=== PATIENT | male | born 1960 | race American Indian/Alaskan Native ===

== ENCOUNTER 2021-05-29 15:11 | Emergency (ER) | payer OTHER ==
--- NOTE | 2021-05-29 18:04 | XRay Report ---
CHEST PA AND LATERAL VIEWS INDICATION: cough. COMPARISON: 04/16/2021 FINDINGS: Support devices: None. Heart: Within normal limits. Lungs/Pleura: Extensive scarring and emphysematous changes again noted. Pleural thickening and pleura l calcifications greatest at the apices are again noted. No superimposed acute pulmonary or pleural f indings. IMPRESSION: 1. No superimposed acute pulmonary or pleural findings. Signer Name: Jamarcus Gong MD Signed: 05/29/2021 6:00 PM Workstation Name: [id number]
--- NOTE | 2021-05-29 18:08 | Emergency Department Report ---
- General Chief Complaint: Upper Respiratory Infection Stated Complaint: COVID Symptoms Time Seen by Provider: 05/29/21 17:15 Source: patient Mode of arrival: Ambulatory Limitations: No Limitations - History of Present Illness Initial Comments: Patient is a 61-year-old male presents emergency room complaints of URI symptoms that began 3 days ago. He reports he is feeling better today. He states he went to get swab for COVID-19 but is awaiting his results. He states he has been fully vaccinated for COVID-19. He has associated cough, headache, fatigue, diarrhea. He denies any shortness of breath, chest pain, vomiting, fever, sore throat, ear pain. He has a past medical history of COPD and CHF. No allergies to medications. - Related Data Previous Rx's Medication Instructions Recorded Last Taken Type Metoprolol [Lopressor TAB] 12.5 mg PO BID #60 tablet 04/18/21 Unknown Rx methylPREDNISolone [Medrol 4MG 4 mg PO DAILY #1 tab.ds.pk 04/18/21 Unknown Rx DOSEPAK (21 tabs)] Arformoterol Nebu [Brovana Nebu] 15 mcg IH Q12HRT 30 Days ml 04/19/21 Unknown Rx Budesonide [Pulmicort Respules] 0.25 mg IH Q12HRT 30 Days nebu 04/19/21 Unknown Rx Furosemide [Lasix TAB] 20 mg PO QDAY #30 tablet 04/19/21 Unknown Rx Nebulizer [Aeroneb Go Nebulizer] 1 each MC BID 30 Days each 04/19/21 Unknown Rx lisinopriL [Zestril TAB] 10 mg PO QDAY #30 tablet 04/19/21 Unknown Rx Benzonatate [Tessalon Perles] 100 mg PO Q8HR PRN #12 capsule 05/29/21 Unknown Rx Fluticasone [Flonase] 1 spray NS QDAY #1 bottle 05/29/21 Unknown Rx guaiFENesin ER [Mucinex ER] 600 mg PO Q12H #14 tablet.er 05/29/21 Unknown Rx Allergies Allergy/AdvReac Type Severity Reaction Status Date / Time No Known Allergies Allergy Verified 04/19/21 08:01 ED Review of Systems ROS: Stated complaint: COVID Symptoms Other details as noted in HPI Comment: All other systems reviewed and negative ED Past Medical Hx - Past Medical History Previous Medical History?: Yes Hx COPD: Yes Additional medical history: emphysema - Surgical History Past Surgical History?: Yes Additional Surgical History: lung surgery - Social History Smoking Status: Unknown if ever smoked - Medications Home Medications: Home Medications Medication Instructions Recorded Confirmed Last Taken Type Metoprolol [Lopressor TAB] 12.5 mg PO BID #60 tablet 04/18/21 Unknown Rx methylPREDNISolone [Medrol 4MG 4 mg PO DAILY #1 tab.ds.pk 04/18/21 Unknown Rx DOSEPAK (21 tabs)] Arformoterol Nebu [Brovana Nebu] 15 mcg IH Q12HRT 30 Days ml 04/19/21 Unknown Rx Budesonide [Pulmicort Respules] 0.25 mg IH Q12HRT 30 Days nebu 04/19/21 Unknown Rx Furosemide [Lasix TAB] 20 mg PO QDAY #30 tablet 04/19/21 Unknown Rx Nebulizer [Aeroneb Go Nebulizer] 1 each MC BID 30 Days each 04/19/21 Unknown Rx lisinopriL [Zestril TAB] 10 mg PO QDAY #30 tablet 04/19/21 Unknown Rx Benzonatate [Tessalon Perles] 100 mg PO Q8HR PRN #12 capsule 05/29/21 Unknown Rx Fluticasone [Flonase] 1 spray NS QDAY #1 bottle 05/29/21 Unknown Rx guaiFENesin ER [Mucinex ER] 600 mg PO Q12H #14 tablet.er 05/29/21 Unknown Rx ED Physical Exam - General Limitations: No Limitations General appearance: alert, in no apparent distress - Head Head exam: Present: atraumatic, normocephalic - Eye Eye exam: Present: normal appearance - ENT ENT exam: Present: mucous membranes moist - Respiratory Respiratory exam: Present: normal lung sounds bilaterally. Absent: respiratory distress, wheezes, rales, rhonchi, stridor, chest wall tenderness, accessory muscle use, decreased breath sounds, prolonged expiratory - Cardiovascular Cardiovascular Exam: Present: regular rate, normal rhythm, normal heart sounds. Absent: systolic murmur, diastolic murmur, rubs, gallop - Neurological Exam Neurological exam: Present: alert, oriented X3 - Psychiatric Psychiatric exam: Present: normal affect, normal mood - Skin Skin exam: Present: warm, dry, intact ED Course Vital Signs 05/29/21 05/29/21 15:49 18:37 Temperature 98.3 F Pulse Rate 60 Respiratory 18 15 Rate Blood Pressure 146/99 132/82 [Right] O2 Sat by Pulse 90 99 Oximetry ED Medical Decision Making - Radiology Data Radiology results: report reviewed Ordering Physician: MEE ALVAREZ Date of Service: 05/29/21 Procedure(s): XR chest routine 2V Accession Number(s): [id number] cc: MEE ALVAREZ Fluoro Time In Minutes: CHEST PA AND LATERAL VIEWS INDICATION: cough. COMPARISON: 04/16/2021 FINDINGS: Support devices: None. Heart: Within normal limits. Lungs/Pleura: Extensive scarring and emphysematous changes again noted. Pleural thickening and pleural calcifications greatest at the apices are again noted. No superimposed acute pulmonary or pleural findings. IMPRESSION: 1. No superimposed acute pulmonary or pleural findings. Signer Name: Jamarcus Gong MD Signed: 05/29/2021 6:00 PM Workstation Name: [id number] Transcribed By: SW Dictated By: Jamarcus Gong MD Electronically Authenticated By: Jamarcus Gong MD Signed Date/Time: 05/29/21 1800 DD/ 58 TD/TT: - Medical Decision Making Patient is a 61-year-old male presents emergency room complaints of URI symptoms that began 3 days ago. He reports he is feeling better today. He states he went to get swab for COVID-19 but is awaiting his results. He states he has been fully vaccinated for COVID-19. He has associated cough, headache, fatigue, diarrhea. He denies any shortness of breath, chest pain, vomiting, fever, sore throat, ear pain. He has a past medical history of COPD and CHF. No allergies to medications. Vitals are stable. Breath sounds are clear bilaterally. Chest x-ray 1. No superimposed acute pulmonary or pleural findings. Symptoms likely related to URI, patient has no tachycardia, no hypoxia, no fever, breath sounds are clear bilaterally, no signs of COPD or CHF exacerbation on exam. Advised pt Please take medication as prescribed. Increase your fluid intake. Follow-up with a primary care doctor. Return to emergency room for any new or worsening symptoms. Recommend outpatient COVID-19 testing and if positive will need to self quarantine for 10 days from onset of symptoms. Critical care attestation.: If time is entered above; I have spent that time in minutes in the direct care of this critically ill patient, excluding procedure time. ED Disposition Clinical Impression: URI (upper respiratory infection) Qualifiers: URI type: unspecified URI Qualified Code(s): J06.9 - Acute upper respiratory infection, unspecified Disposition: 01 HOME / SELF CARE / HOMELESS Is pt being admited?: No Does the pt Need Aspirin: No Condition: Stable Instructions: Viral Respiratory Infection Additional Instructions: Please take medication as prescribed. Increase your fluid intake. Follow-up with a primary care doctor. Return to emergency room for any new or worsening symptoms. Recommend outpatient COVID-19 testing and if positive will need to self quarantine for 10 days from onset of symptoms. Prescriptions: Fluticasone [Flonase] 1 spray NS QDAY #1 bottle guaiFENesin ER [Mucinex ER] 600 mg PO Q12H #14 tablet.er Benzonatate [Tessalon Perles] 100 mg PO Q8HR PRN #12 capsule PRN Reason: cough Referrals: PRIMARY CARE, [Primary Care Provider] - 3-5 Days Forms: Work/School Release Form(ED) Time of Disposition: 18:06 Print Language: BULGARIAN
[2021-05-29 18:37] VITALS: BP 132/82
== END 2021-05-29 18:37 | disposition home or self-care (01) ==
LOC: ED 15:11
DX: J06.9 Acute upper respiratory infection, unspecified (principal)
CPT/HCPCS: 71046; 99283